=== PATIENT | male | born 1980 | race Caucasian/White ===

== ENCOUNTER 2020-11-02 13:22 | Emergency (ER) | payer OTHER ==
[~2020-11-02 13:22] MED LIST: ACYCLOVIR800 MG PO; AMOXICILLIN500 MG PO; CARAFATE S500 MG/TSP PO; MEDROL 4MG DOSEP4 MG PO; NORCO 5-325 TA1 EACH PO; PROTONIX 40MG T40 MG PO; TRIAMCINOLONE 015 GM TOP; VOLTAREN **OUT75 MG PO
== END 2020-11-02 15:52 | disposition home or self-care (01) ==
LOC: FER 13:22
DX: H53.2 Diplopia (principal); F17.210 Nicotine dependence, cigarettes, uncomplicated
CPT/HCPCS: 70450

== ENCOUNTER 2022-01-09 14:16 | Inpatient (IN) | payer OTHER ==
[~2022-01-09] VITALS: Ht 182.9 cm; Wt 102.2 kg
[2022-01-09 18:20] LABS: BASOPHIL 0.4 % (0-2); EOSINOPHIL 0.3 % (0-5); HCT 46.9 % (42.0-52.0); HGB 15.4 g/dl (13.2-18.0); LYMPHOCYTE 8.6 % (15-48); MCH 27.4 pg (25.0-31.0); MCHC 32.8 g/dL (32.0-36.0); MCV 83.5 fL (78.0-100.0); MPV 9.5 fL (6.0-9.5); NEUTROPHIL 80.3 % (41-80); NRBC 0; PLT 249 K/uL (150-400); RBC 5.62 M/uL (4.70-6.00); RDW 13.6 % (11.5-14.0); WBC 16.7 K/uL (4.0-10.5)
[2022-01-09 18:48] LABS: BUN/CREAT RATIO (CALC) 19.1 RATIO; CREATININE 1.1 mg/dL (0.67-1.17); POTASSIUM 4.4 mmol/L (3.5-5.1)
[2022-01-10] MEDS ORDERED: BACTRIM DS TAB1 EACH PO (01:19)
[2022-01-10] MEDS ORDERED: CLONIDINE HCL0.2 MG PO (01:21)
[2022-01-10] MEDS ORDERED: PRILOSEC20 MG PO (01:21)
[2022-01-10 08:47] LABS: BASOPHIL 0.5 % (0-2); EOSINOPHIL 0.4 % (0-5); HCT 44.9 % (42.0-52.0); HGB 14.7 g/dl (13.2-18.0); LYMPHOCYTE 7.5 % (15-48); MCH 27.8 pg (25.0-31.0); MCHC 32.7 g/dL (32.0-36.0); MCV 84.9 fL (78.0-100.0); MONOCYTE 9.2 % (0-12); MPV 9.2 fL (6.0-9.5); NRBC 0; PLT 237 K/uL (150-400); RBC 5.29 M/uL (4.70-6.00); RDW 13.8 % (11.5-14.0)
[2022-01-10 09:11] LABS: ALBUMIN 3.4 g/dL (3.4-5.0); BILIRUBIN - DIRECT 0.4 mg/dL (0.00-0.20); BILIRUBIN - TOTAL 1.6 mg/dL (0.2-1.0); BUN/CREAT RATIO (CALC) 16.3 RATIO; CREATININE 0.92 mg/dL (0.67-1.17); GLOBULIN (CALCULATION) 4.2 g/dL; POTASSIUM 4.3 mmol/L (3.5-5.1); TOTAL PROTEIN 7.6 g/dL (6.4-8.2)
[2022-01-11] MEDS ORDERED: TRAMADOL HCL50 MG PO (09:57)
[2022-01-11] MEDS ORDERED: CLINDAMYCIN HC300 MG PO (09:57)
[2022-01-11] MEDS ORDERED: IBUPROFEN400 MG PO (09:57)
== END 2022-01-11 11:15 | DRG 603 ==
LOC: FER 14:16 → FMS 01-10 00:20
PROVIDERS: Nurse Practitioner; Nurse Practitioner Family; Student in an Organized Health Care Education/Training Program; ADMIT Internal Medicine
PROC: 02HV33Z Insertion of Infusion Device into Superior Vena Cava, Percutaneous Approach (ICD-10-PCS; 2022-01-10)
PROC: 0J9K0ZZ Drainage of Left Hand Subcutaneous Tissue and Fascia, Open Approach (ICD-10-PCS; principal; 2022-01-10 13:45)
PROC: 0J9G0ZZ Drainage of Right Lower Arm Subcutaneous Tissue and Fascia, Open Approach (ICD-10-PCS; 2022-01-10 13:45)
DX: L03.012 Cellulitis of left finger (principal); L03.112 Cellulitis of left axilla; L02.413 Cutaneous abscess of right upper limb; L02.411 Cutaneous abscess of right axilla; L02.512 Cutaneous abscess of left hand; I10 Essential (primary) hypertension; Z20.822 Contact with and (suspected) exposure to COVID-19; Z28.310 Unvaccinated for COVID-19
CPT/HCPCS: 36415; 71045; 80048; 80076; 83605; 84145; 85025; 87070; 87205; J0696; J1100; J1650; J2250; J2270; J2405; J2543; J2704; J3010; J3370; J7030; J7040; J7120; U0002